=== PATIENT | female | born 1985 | race Caucasian/White ===

== ENCOUNTER 2022-01-07 09:49 | Inpatient (IN) ==
[2022-01-07] MEDS ORDERED: Ringers Solution, Lactated 1,000 ML ONE ×2 (10:39→12:51)
[2022-01-07] MEDS ORDERED: Famotidine 20 MG/2 ML VIAL IVP ONE (10:51)
[2022-01-07] MEDS ORDERED: Clindamycin 900 MG/50 ML 900 MG/50 ML IV.SOLN IVPB ONE (10:51)
[2022-01-07] MEDS ORDERED: Metoclopramide 10 MG/2 ML VIAL IVP ONE (10:51)
[2022-01-07] MEDS ORDERED: Ondansetron 4 MG/2 ML VIAL IVP PRN ×2 (10:54→16:23)
[2022-01-07] MEDS ORDERED: *HR* HYDROmorphone PF 0.5 MG/0.5 ML SYRINGE IVP PRN (10:54)
[2022-01-07] MEDS ORDERED: Promethazine 6.25 MG in Water for inj. (sterile) 20 ML IVPB PRN (10:54)
[2022-01-07] MEDS ORDERED: Ringers Solution, Lactated 1,000 ML IVC SCH ×2 (11:00→16:23)
[2022-01-07] MEDS ORDERED: Oxytocin 30 UNIT/503 ML BAG IVC SCH ×2 (11:00→16:23)
[2022-01-07] MEDS ORDERED: EPHEDrine sulfate 50 MG/10 ML VIAL IVP ONE (11:22)
[2022-01-07] MEDS ORDERED: Ondansetron 4 MG/2 ML VIAL ONE (11:22)
[2022-01-07] MEDS ORDERED: *HR* Morphine Sulfate/PF 10 MG/10 ML AMPUL ONE (11:22)
[2022-01-07] MEDS ORDERED: Acetaminophen IV 1,000 MG/100 ML BAG IVPB ONE (11:22)
[2022-01-07] MEDS ORDERED: *HR* FentaNYL (PF) 100 MCG/2 ML VIAL ONE (11:22)
[2022-01-07] MEDS ORDERED: Ketorolac 30 MG/ML VIAL ONE (11:22)
[2022-01-07] MEDS ORDERED: *HR* Phenylephrine 10 MG/ML VIAL ONE (11:26)
[2022-01-07 11:33] LABS: Basophils # 0.1 K/mcL (0.0-0.2); Basophils % 0.4 %; Eosinophils # 0.2 K/mcL (0.0-0.6); Eosinophils % 1.7 %; Hematocrit 32.7 % (35.3-44.9); Hemoglobin 10.6 g/dL (11.5-15.4); Immature Granulocytes % 0.3 % (0-4); Lymphocytes # 1.9 K/mcL (0.6-4.6); Lymphocytes % 15.7 %; Mean Corpuscular HGB Conc 32.4 g/dL (31.6-35.5); Mean Corpuscular Volume 80.1 fL (83.0-100.0); Mean Platelet Volume 10.8 fL (9.4-12.4); Monocytes # 0.9 K/mcL (0.0-1.3); Neutrophils # 9.1 K/mcL (1.6-8.9); Platelet Count 280 K/mcL (140-400); Red Blood Count 4.08 M/mcL (3.82-4.97); Red Cell Distribution Width 14.9 % (11.5-14.5); Segmented Neutrophils % 74.9 %; White Blood Count 12.1 K/mcL (4.3-11.1)
[2022-01-07 11:41] LABS: Amphetamine Screen,Urine Negative ng/mL (Cutoff=1000); Barbiturate Screen,Urine Negative ng/mL (Cutoff=200); Benzodiazepines Screen,Urine Negative ng/mL (Cutoff=200); Cannabinoid Screen,Urine Negative ng/mL (Cutoff = 50); Cocaine Screen,Urine Negative ng/mL (Cutoff= 300); Opiate Screen,Urine Negative ng/mL (Cutoff=300); Phencyclidine Screen,Urine Negative ng/mL (Cutoff=25)
[2022-01-07] MEDS ORDERED: *HR* OxyCODONE Immed Rel 5 MG TABLET PO PRN (14:43)
[2022-01-07] MEDS ORDERED: Rho Immune Globulin 1,500 UNIT SYRINGE IM ONE ×2 (14:43→16:23)
[2022-01-07] MEDS ORDERED: Naloxone 0.4 MG/ML INJ IVP PRN ×2 (14:43→16:23)
[2022-01-07] MEDS ORDERED: Acetaminophen 325 MG TABLET PO SCH (14:45)
[2022-01-07] MEDS: Ibuprofen 400 MG TABLET PO SCH (17:11)
[2022-01-07] MEDS ORDERED: Ibuprofen 600 MG TABLET PO SCH (17:44)
[2022-01-07] MEDS ORDERED: Simethicone 80 MG TAB.CHEW PO SCH (18:00)
[2022-01-07] MEDS: Simethicone 80 MG TAB.CHEW PO SCH (20:53)
[2022-01-07] MEDS: Acetaminophen 325 MG TABLET PO SCH (20:53)
[2022-01-08] MEDS: Clindamycin 900 MG/50 ML 900 MG/50 ML IV.SOLN IVPB SCH ×2 (00:36→08:01)
[2022-01-08] MEDS: Ibuprofen 400 MG TABLET PO SCH ×3 (04:39→16:54)
[2022-01-08] MEDS: Acetaminophen 325 MG TABLET PO SCH ×3 (04:39→16:55)
[2022-01-08] MEDS: Famotidine 20 MG TABLET PO SCH (08:00)
[2022-01-08] MEDS: Simethicone 80 MG TAB.CHEW PO SCH (08:00)
[2022-01-08] MEDS: Prenatal Vit/FA 1 EACH TABLET PO SCH (08:00)
[2022-01-08] MEDS ORDERED: Prenatal Vit/FA 1 EACH TABLET PO SCH ×2 (09:00)
[2022-01-08] MEDS: *HR* OxyCODONE Immed Rel 5 MG TABLET PO PRN (23:37)
[2022-01-09] MEDS: Ibuprofen 400 MG TABLET PO SCH ×2 (05:42→05:55)
[2022-01-09] MEDS: Acetaminophen 325 MG TABLET PO SCH ×3 (05:43→12:11)
[2022-01-09] MEDS: Prenatal Vit/FA 1 EACH TABLET PO SCH (08:02)
[2022-01-09] MEDS: Famotidine 20 MG TABLET PO SCH (08:03)
[2022-01-09] MEDS: *HR* OxyCODONE Immed Rel 5 MG TABLET PO PRN ×2 (08:04→12:12)
[2022-01-09 08:14] VITALS: BP 121/73; PULSE 92; TEMP 97.8; O2SAT 98
== END 2022-01-09 12:27 | disposition home or self-care (01) | DRG 539 ==
LOC: 1NENULAB 09:49 → 1NENUOBS 15:50
PROVIDERS: ADMIT Obstetrics & Gynecology; ATTEND Obstetrics & Gynecology